=== PATIENT | male | born 2000 | race Two or more races ===

== ENCOUNTER 2022-08-25 20:40 | Emergency (ER) | payer SELFPAY ==
[2022-08-25 20:41] VITALS: BP 121/74; PULSE 77; RESP 15; TEMP 37.2; O2SAT 98; BMI 23.6
[2022-08-25 21:45] LABS: Absolute Neutrophil Count 2.3 X10^3/uL (2.0-7.7); Basophil# 0.03 X10^3/uL; Basophil% 0.6 % (0-1); Eosinophil# 0.06 X10^3/uL; Eosinophils% 1.2 % (0-5); Hematocrit 37.2 % (40-54); Hemoglobin 12.2 g/dL (13.0-16.5); Lymphocyte % 44.4 % (19-41); Mean Corp Hgb Conc 32.8 g/dL (32-36); Mean Corpuscular Hgb 28.3 pg (27.0-32.0); Mean Corpuscular Volume 86.3 fL (80-94); Mean Platelet Vol. 10.3 fl (6.2-12.0); Monocyte% 8.1 % (0-10); NRBC Flagged by Analyzer 0 % (0-5); Neutrophil # 2.27 X10^3/uL (2.7-7.7); Neutrophil % 45.7 % (47-70); Platelet Count 198 K/mm3 (150-450); RBC Distribution Width CV 13.9 % (11.6-14.6); RBC Distribution Width SD 44.6 fl (35.1-43.9); Red Blood Count 4.31 M/mm3 (4.6-6.2)
[2022-08-25 22:13] LABS: Anion Gap 7 (5-15); BUN 13 mg/dL (7-18); BUN/Creat Ratio 11.3 RATIO (10-20); Chloride 108 mmol/L (98-107); Creatinine, Serum 1.15 mg/dL (0.70-1.30); D-Dimer Quantitative (DVT/PE) < 0.27 FEU/ug/m (0.27-0.49); EST Glomerular Filtration Rate 86 mL/min (>60); Est Glom Filt Rate - Afr Amer 104 mL/min (>60); Glucose 107 mg/dL (74-106); Potassium 3.9 mmol/L (3.5-5.1); Sodium Level 142 mmol/L (136-145)
--- NOTE | 2022-08-25 22:25 | EX.ED.DYSGE1 ---
HPI History of Present Illness Chief Complaint: General Illness Informant: patient Narrative Narrative: History of asthma presents to ED stating he is constantly short of breath for the last 2 days. 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 He states during the events he felt significantly fatigued had to stop. Since then has continued dyspnea. With his asthma history denies cough or wheezing. Reports he returned from [place] on Thursday by plane. He states he has been achy all over. Today had 2 diarrheas. No fevers or headaches. Denies sick contacts. Denies history of PE or DVT. Denies tobacco history. Prior similar symptoms: No PFSH PFSH Allergy/AdvReac Type Severity Reaction Status Date / Time No Known Allergies Allergy Verified 08/25/22 20:41 Social History Smoking Status: Never smoker ROS ROS ED Constitutional Constitutional ED: Denies chills, fever(s) or sweats Eyes Eyes: Denies change in vision ENT ENT ED: Denies dysphagia or sore throat Cardiovascular Cardiovascular: Denies chest pain, leg edema, palpitations or racing heartbeat Respiratory/Chest Respiratory/Chest: Reports dyspnea and dyspnea on exertion; Denies cough Gastrointestinal Gastrointestinal: Denies abdominal pain, diarrhea, nausea or vomiting Genitourinary Genitourinary ED: Denies dysuria, hematuria or urinary frequency Musculoskeletal Musculoskeletal: Denies back pain, extremity pain or neck pain Integumentary Denies rash or wounds Neurologic Neurologic: Denies headache(s), paresthesias or weakness EXAM Physical Exam Const Vital Signs: 08/25/22 20:41 08/25/22 21:04 08/25/22 22:58 Temperature 98.9 F Temperature Source Temporal Pulse Rate 77 Respiratory Rate 15 Respiratory Pattern Normal Blood Pressure 121/74 H Blood Pressure Mean 89 Pulse Ox 98 97 Oxygen Delivery Method Room Air Room Air Positive well nourished and well developed General Appearance ED: well developed and NAD HEENT Reports moist mucous membranes normocephalic and atraumatic Eyes PERRL, EOMs intact bilaterally and conjunctivae normal General Eye ED: Yes normal appearance of both eyes Neck no lymphadenopathy and supple General: Negative for tenderness Chest Wall Chest: Negative for tenderness Resp normal respiratory effort and normal air movement Effort and Inspection: symmetric chest movement; Negative for respiratory distress Cardio regular rate, regular rhythm and no murmurs Peripheral Pulses: pulses 2+ throughout GI normal to inspection, nondistended, normoactive bowel sounds and non-tender Palpation: Negative for guarding or rebound tenderness present Back/Spine no CVA tenderness and no thoracic nor lumbar tenderness Extremity normal to inspection General Extremety ED: Negative for edema or tenderness General Extremity: Negative for edema Neuro oriented x3 and no sensory deficits noted Sensorium / Orientation: awake and alert Skin no rashes or lesions noted and no wounds MDM MDM MDM Narrative Medical decision making narrative: Patient presenting with reported dyspnea worse over last 2 days. Vitals are all stable. Differentials viral syndrome, asthma exacerbation, PE with his recent travel. Denied cough symptoms. Therefore less likely viral syndrome. Laboratory studies obtained reviewed normal D-dimer negative therefore less likely PE concerns 2 view chest x-ray interpreted by myself and read by radiology shows no acute process. There is no pneumothorax. Patient reassured. Monitor symptoms. Discharged with outpatient follow-up. Return precautions. All questions were answered. Lab Data Attestation: I reviewed the patient's lab results. Labs: Laboratory Results - last 24 hr 08/25/22 08/25/22 08/25/22 21:34 21:34 21:34 WBC 5.0 RBC 4.31 L Hgb 12.2 L Hct 37.2 L MCV 86.3 MCH 28.3 MCHC 32.8 RDW Std Deviation 44.6 H RDW Coeff of Anton 13.9 Plt Count 198 MPV 10.3 Immature Gran % (Auto) 0.000 Neut % (Auto) 45.7 L Lymph % (Auto) 44.4 H [place] % (Auto) 8.1 Eos % (Auto) 1.2 Baso % (Auto) 0.6 Absolute Neuts (auto) 2.3 Absolute Lymphs (auto) 2.20 Nucleated RBC % 0 D-Dimer Quant (PE/DVT) < 0.27 L Sodium 142 Potassium 3.9 Chloride 108 H Carbon Dioxide 27.0 Anion Gap 7 BUN 13 Creatinine 1.15 Estim Creat Clear Calc 95.80 Est GFR (MDRD) Af Amer 104 Est GFR (MDRD) Non-Af 86 BUN/Creatinine Ratio 11.3 Glucose 107 H Calcium 9.0 Radiography Diagnostic Testing: Clinical Impression(s) from Imaging Studies Chest X-Ray 08/25/22 22:40 IMPRESSION: No radiographic evidence of acute cardiopulmonary disease. Electronically Signed: Kris Covarrubias MD at 22:56 EST , Discharge Plan Triage Chief Complaint: General Illness ED Provider: Jaron Mcgrath Dx/Rx/DC Orders Clinical Impression: Dyspnea, History of asthma Instructions: ED Dyspnea Primary Care Provider: Care Physician,No Primary Referrals: Care Physician,No Primary [Primary Care Provider] - Activity Restrictions/Additional Instructions: Your chest x-ray negative. Your blood work with D-dimer negative. COVID and flu negative. Monitor symptoms and follow-up with your doctor. Return if any worsening symptoms. Disposition Disposition: Home, Self Care Discharge Date/Time: 08/25/22 22:59
--- NOTE | 2022-08-25 22:40 | RAD_ITS ---
INDICATION: Shortness of breath EXAMINATION/TECHNIQUE: X-RAY - XR Chest 2 Views COMPARISON: None. FINDINGS: LINES/DEVICES: None. LUNGS: No consolidation, edema or effusion. No pneumothorax. MEDIASTINUM AND CARDIOVASCULAR STRUCTURES: Cardiac silhouette not enlarged. Central airways and mediastinal contour are unremarkable. RAD/Chest PA and Lateral IMPRESSION: No radiographic evidence of acute cardiopulmonary disease. Electronically Signed: Kris Covarrubias MD at 22:56 EST ,
[2022-08-25 22:58] VITALS: O2SAT 97
== END 2022-08-25 22:59 | disposition home or self-care (01) ==
PROVIDERS: Emergency Provider Emergency Medicine; Visit Provider Emergency Medicine
DX: R06.00 Dyspnea, unspecified (principal); J45.909 Unspecified asthma, uncomplicated; Z20.822 Contact with and (suspected) exposure to COVID-19
CPT/HCPCS: 71046; 80048; 85025; 85379; 87428; 99283; A4216